=== PATIENT | female | born 1955 | race Caucasian/White ===

== ENCOUNTER 2021-04-17 12:06 | Emergency (ER) | payer OTHER ==
[~2021-04-17] VITALS: Ht 167.6 cm; Wt 68.0 kg
[2021-04-17] MEDS ORDERED: TDAP [DIPH/PERTUSSIS/TET] 0.5 ML VIAL IM ONE ×2 (12:29→12:30)
[2021-04-17] MEDS ORDERED: BACITRACIN ZINC OINT PACKET 1 EA PACKET TP ONE (12:30)
--- NOTE | 2021-04-17 12:30 | NUR ---
Patient elvia, from home, fell out of bed,hit her head on the headboard, no ko, on room air, breathing evenly and unlabored. Connected to the monitor and pulse ox. kept comfortable, will continue to monitor accordingly.
[2021-04-17 14:14] VITALS: BP 135/77
--- NOTE | 2021-04-17 14:14 | NUR ---
Patient discharged to home in stable condition. Written and verbal after care instructions given. Patient verbalizes understanding of instruction.IV removed. Catheter intact and site benign. Pressure and 4x4 applied to site. No bleeding noted.
== END 2021-04-17 14:14 | disposition home or self-care (01) ==
LOC: ER 12:09
DX: S01.81XA Laceration without foreign body of other part of head, initial encounter (principal); S09.8XXA Other specified injuries of head, initial encounter; F32.9 Major depressive disorder, single episode, unspecified; F41.9 Anxiety disorder, unspecified; Z60.2 Problems related to living alone; W06.XXXA Fall from bed, initial encounter; Y93.89 Activity, other specified; Y92.89 Other specified places as the place of occurrence of the external cause; Y99.8 Other external cause status
CPT/HCPCS: 12011; 70450; 72125; 90471; 90715; 99285; A6403

== ENCOUNTER 2024-07-25 08:13 | Emergency (ER) | payer MEDICARE, BC ==
[~2024-07-25] VITALS: Ht 167.6 cm; Wt 68.9 kg
[2024-07-25] MEDS ORDERED: NAPROXEN 250 MG TABLET ONE (08:55)
[2024-07-25] MEDS: NAPROXEN 250 MG TABLET PO ONE (09:00)
[2024-07-25] MEDS ORDERED: IBUP-1490 PO (09:41)
[2024-07-25 09:47] VITALS: BP 118/63; TEMP 97.9; O2SAT 95
== END 2024-07-25 09:47 | disposition home or self-care (01) ==
LOC: ER 08:22
DX: M79.671 Pain in right foot (principal); F32.A Depression, unspecified; F41.9 Anxiety disorder, unspecified; Z79.899 Other long term (current) drug therapy; W06.XXXA Fall from bed, initial encounter; Y93.89 Activity, other specified; Y92.89 Other specified places as the place of occurrence of the external cause; Y99.8 Other external cause status
CPT/HCPCS: 73610-TC; 73630-TC

== ENCOUNTER 2025-02-04 14:49 | Emergency (ER) | payer MEDICARE, BC ==
[~2025-02-04] VITALS: Ht 170.2 cm; Wt 68.0 kg
[~2025-02-04 14:49] MED LIST: IBUP-1490 PO
[2025-02-04] MEDS ORDERED: CHLORDIAZEPOXIDE HCL 25 MG CAPSULE ONE (16:27)
[2025-02-04] MEDS: IV NS 0.9% 1,000 ML BAG IV ONE (16:30)
[2025-02-04] MEDS: CHLORDIAZEPOXIDE HCL 25 MG CAPSULE PO ONE (16:30)
[2025-02-04] MEDS: Thiamine 100 MG in IV D5W 50 ML IV SCH (16:30)
[2025-02-04 16:45] LABS: BASOPHILS % (AUTO) 0.3 % (0.0-2.0); EOSINOPHILS # (AUTO) 0.1 K/uL (0.0-0.7); EOSINOPHILS % (AUTO) 1.3 % (0.0-6.0); HEMATOCRIT 42 % (33-45); HEMOGLOBIN 14.5 g/dL (11.5-14.8); LYMPHOCYTES % (AUTO) 17.3 % (20.0-44.0); MEAN CORPUSCULAR HEMOGLOBIN 31 PG (26.0-33.0); MEAN CORPUSCULAR HGB CONC 35 g/dl (31.0-36.0); MEAN CORPUSCULAR VOLUME 89 fL (82-100); MONOCYTES # (AUTO) 0.4 K/uL (0.1-1.30); MONOCYTES % (AUTO) 3.4 % (2.0-12.0); NEUTROPHILS # (AUTO) 8.8 K/uL (1.8-8.9); NEUTROPHILS % (AUTO) 77.7 % (43.0-81.0); PLATELET COUNT (AUTO) 236 K/uL (150-450); RED BLOOD CELL COUNT(AUTO) 4.66 MIL/uL (4.0-5.2); RED CELL DISTRIBUTION WIDTH 14.2 % (11.5-15.0); WHITE BLOOD COUNT (AUTO) 11.4 K/uL (4.3-11.0)
[2025-02-04 16:56] LABS: CALCIUM, SERUM 9.5 mg/dL (8.5-10.1); CREATININE 0.7 mg/dL (0.6-1.3); POTASSIUM 4.9 mmol/L (3.5-5.1)
[2025-02-04 17:02] LABS: ALBUMIN 3.9 g/dL (3.4-5.0); BILIRUBIN,DIRECT 0.1 mg/dL (0.0-0.2); BILIRUBIN,TOTAL 0.7 mg/dL (0.2-1.0); TOTAL PROTEIN, SERUM 8.2 g/dL (6.4-8.2)
[2025-02-04] MEDS ORDERED: CHLO25CA22 PO (18:25)
[2025-02-04] MEDS ORDERED: ONDA4TAB11 PO (18:35)
[2025-02-04 18:45] VITALS: BP 143/90; TEMP 97.8; O2SAT 99
== END 2025-02-04 18:46 | disposition home or self-care (01) ==
LOC: ER 14:55
DX: S09.90XA Unspecified injury of head, initial encounter (principal); R51.9 Headache, unspecified; F10.939 Alcohol use, unspecified with withdrawal, unspecified; R00.2 Palpitations; R11.0 Nausea; I10 Essential (primary) hypertension; F41.9 Anxiety disorder, unspecified; Z79.899 Other long term (current) drug therapy; Z60.2 Problems related to living alone; Y90.9 Presence of alcohol in blood, level not specified
CPT/HCPCS: 99285; 71250; 96365; 70450; 85025; 80048; 80076; 36415; J7060; J7030; J3411; A4223